=== PATIENT | male | born 1965 | race Caucasian/White ===

== ENCOUNTER → 2020-06-30 | Outpatient (CLI) | payer SELFPAY ==
[~2020-06-30] MED LIST: MELO7.5T31 PO
== END | disposition home or self-care (01) ==
LOC: STAR 14:34
PROVIDERS: ATTEND Urology
DX: Z01.818 Encounter for other preprocedural examination (principal); N35.919 Unspecified urethral stricture, male, unspecified site
CPT/HCPCS: 93005

== ENCOUNTER 2020-07-04 07:44 | Day surgery (SDC) | payer SELFPAY ==
[~2020-07-04] VITALS: Ht 170.2 cm; Wt 98.0 kg
[2020-07-04] MEDS ORDERED: LACTATED RINGERS 1,000 ML IV SCH (08:34)
[2020-07-04] MEDS ORDERED: ACET-1600 PO (08:36)
[2020-07-04 08:38] VITALS: BP 148/93
[2020-07-04] MEDS ORDERED: ALBUTEROL INH (08:58)
[2020-07-04] MEDS ORDERED: CHLORHEXIDINE 15 ML UDC MM ONE (09:00)
[2020-07-04] MEDS ORDERED: MIDAZOLAM 1 MG/ML, 2ML ONE (10:06)
[2020-07-04] MEDS ORDERED: FENTANYL PF 100 MCG/2ML ONE ×3 (10:06→11:31)
[2020-07-04] MEDS ORDERED: LIDOCAINE-MPF 2% ,5ML ONE (10:06)
[2020-07-04] MEDS ORDERED: PROPOFOL 10 MG/ML, 20ML ONE (10:06)
[2020-07-04] MEDS ORDERED: DEXAMETHASONE 4 MG/ML, 1ML ONE ×3 (10:22)
[2020-07-04] MEDS ORDERED: ONDANSETRON 2MG/ML, 2ML ONE (10:22)
[2020-07-04] MEDS ORDERED: KETOROLAC 30 MG/1 ML ONE (10:22)
[2020-07-04] MEDS ORDERED: CEFAZOLIN 1,000 MG ONE ×2 (10:29)
[2020-07-04] MEDS ORDERED: ONDANSETRON 2MG/ML, 2ML IVPush PRN (10:30)
[2020-07-04] MEDS ORDERED: OXYcodone 5 MG/5 ML ORAL.SOL UDC PO PRN (10:30)
[2020-07-04] MEDS: FENTANYL PF 100 MCG/2ML IV PRN ×4 (11:11→11:43)
[2020-07-04] MEDS ORDERED: OXYcodone 5 MG/5 ML ORAL.SOL UDC ONE (11:18)
== END 2020-07-04 15:30 | disposition home or self-care (01) ==
LOC: OUT 07:44
PROVIDERS: ATTEND Urology
DX: N35.919 Unspecified urethral stricture, male, unspecified site (principal); Z11.59 Encounter for screening for other viral diseases; N52.9 Male erectile dysfunction, unspecified; E29.1 Testicular hypofunction; E11.9 Type 2 diabetes mellitus without complications; F17.210 Nicotine dependence, cigarettes, uncomplicated; Z79.1 Long term (current) use of non-steroidal anti-inflammatories (NSAID); Z79.899 Other long term (current) drug therapy
CPT/HCPCS: 36415; 52276; 82962; 87635; C1769; J0690; J1100; J2250; J2405; J2704; J3010; J7120; J1885